=== PATIENT | male | born 1990 | race Two or more races ===

== ENCOUNTER 2021-10-07 17:06 | Emergency (ER) | payer OTHER, SELFPAY ==
[2021-10-07 17:14] VITALS: BP 137/73; PULSE 76; RESP 97; TEMP 36.8; BMI 29.6
[2021-10-07 17:33] LABS: Imm Gran Abs Auto 0.06 X10*3/uL (0.00-0.03); MANUAL DIFF FLAG SCAN; Red Cell Distribution Width 12.4 % (11.0-16.0); SCAN SMEAR FLAG 1
[2021-10-07 17:35] LABS: Basophils Percent Auto 0.5 % (0-2); Eosinophils Absolute Auto 0.1 X10*3/uL (0.0-0.4); Eosinophils Percent Auto 2.1 % (0-4); Hematocrit 48.5 % (42.0-52.0); Hemoglobin 16.6 g/dl (14.0-18.0); Lymphocytes Absolute Auto 2.1 X10*3/uL (1.2-4.9); Lymphocytes Percent Auto 33.4 % (20-40); Mean Corpuscular HGB Conc 34.2 g/dl (31.0-36.0); Mean Corpuscular Hemoglobin 30.5 pg (27.0-33.0); Mean Corpuscular Volume 89.2 fL (80.0-98.0); Mean Platelet Volume 13.3 fL (9.4-12.4); Monocytes Absolute Auto 0.6 X10*3/uL (0.1-1.2); Monocytes Percent Auto 9.4 % (2-11); Neutrophils Absolute Auto 3.4 x10*3/uL (2.0-8.3); Neutrophils Percent Auto 53.6 % (45-73); Platelet Count 166 X10*3/uL (160-400); Red Blood Count 5.44 X10*6/uL (4.60-5.80); White Blood Count 6.3 X10*3/uL (4.8-10.8)
[2021-10-07 17:36] LABS: PLT ABN DIST 1
[2021-10-07 17:55] LABS: SLIDE REVIEW VERIFIED
[2021-10-07 17:59] LABS: COVID-19 Test Negative (Negative)
[2021-10-07 18:10] LABS: Anion Gap 13 (12-20); Blood Urea Nitrogen 16 mg/dL (9-16); Calcium 9.8 mg/dL (8.4-10.2); Carbon Dioxide 26 mmol/L (22-29); Chloride 104 mmol/L (96-108); Creatinine Clr Calc Pharmacy 103.9; Estimated Glomerular Filt Rate > 60; Glucose Random 115 mg/dL (60-115); Potassium 4.2 mmol/L (3.3-5.1); Sodium 139 mmol/L (135-145)
[2021-10-07 21:12] VITALS: BP 134/86; PULSE 58; RESP 18; TEMP 36.8; O2SAT 98
--- NOTE | 2021-10-07 21:15 | ED_ITS ---
HPI - General Adult General Chief complaint: General Medical Stated complaint: high blood pressure, headache, lighthead Time Seen by Provider: 10/07/21 21:15 Source: patient Mode of arrival: ambulatory History of Present Illness HPI narrative: 31-year-old male without significant past medical history, denies any use of alcohol or drugs and states he has a family history of hypertension and took his blood pressure this morning finding at significantly elevated 170s over 90s. Patient denies any chest pain/palpitations, blurry, but states he is having mild headache but also endorses that he has a stressful job Related Data Allergies Allergy/AdvReac Type Severity Reaction Status Date / Time No Known Allergies Allergy Verified 10/07/21 17:14 Review of Systems Review of Systems: Pertinent positives and negative as stated in the HPI and 10 point review of systems is otherwise negative. [facility] Past Medical History Source: nursing notes reviewed Social History Social History Advance Directives: No Advance Directives Information Provided: Yes Physical Exam Vital Signs: Vital Signs: Last Vital Signs Temp 98.2 F 10/07/21 21:12 Pulse 58 10/07/21 21:12 Resp 18 10/07/21 21:12 BP 134/86 10/07/21 21:12 Pulse Ox 98 10/07/21 21:12 BMI result Body Mass Index 29.6 VITAL SIGNS: Reviewed. GENERAL: Well developed, well nourished, in no acute distress. HEAD: Normocephalic/atraumatic EYES: PERRLA, EOMI OROPHARYNX: no oral lesions noted, posterior pharynx clear LUNGS: Normal breath sounds. No adventitious sounds or accessory muscle use. SpO2<98> CARDIOVASCULAR: Regular rate and rhythm without noted murmurs ABDOMEN: Soft, non-tender, non-distended with bowel sounds. SKIN: Inspection of the skin reveals no rashes NEUROLOGIC: Alert and oriented x 4. Strength and sensation to light touch were grossly intact x 4, otherwise nonfocal Course Course Course Narrative: 31-year-old male with history and clinical presentation consistent with elevated blood pressure and poor follow-up as he has no primary care provider. Review of all investigations otherwise negative for acute findings. Patient otherwise discharged home in stable condition with instructions to adjust diet and establish care with a primary care provider. Medical Decision Making Lab Data Result diagrams: 10/07/21 17:26 10/07/21 17:26 Labs: Lab Results 10/07/21 10/07/21 10/07/21 Range/Units 17:26 17:26 17:26 WBC 6.3 (4.8-10.8) X10*3/uL RBC 5.44 (4.60-5.80) X10*6/uL Hgb 16.6 (14.0-18.0) g/dl Hct 48.5 (42.0-52.0) % MCV 89.2 (80.0-98.0) fL MCH 30.5 (27.0-33.0) pg MCHC 34.2 (31.0-36.0) g/dl RDW 12.4 (11.0-16.0) % Plt Count 166 (160-400) X10*3/uL MPV 13.3 H (9.4-12.4) fL Immature Gran % (Auto) 1.0 H (0.0-0.4) % Neut % (Auto) 53.6 (45-73) % Lymph % (Auto) 33.4 (20-40) % Stephenson % (Auto) 9.4 (2-11) % Eos % (Auto) 2.1 (0-4) % Baso % (Auto) 0.5 (0-2) % Lymph # (Auto) 2.1 (1.2-4.9) X10*3/uL Stephenson # (Auto) 0.6 (0.1-1.2) X10*3/uL Eos # (Auto) 0.1 (0.0-0.4) X10*3/uL Baso # (Auto) 0.0 (0.0-0.2) X10*3/uL Abs Immat Gran (auto) 0.06 H (0.00-0.03) X10*3/uL Absolute Neuts (auto) 3.4 (2.0-8.3) x10*3/uL Absolute Nucleated RBC 0.000 (0.0-0.012) X10*3/uL Nucleated RBC % (auto) 0.0 (0.0-0.2) /100WBC Smear Tech's Comments VERIFIED Sodium 139 (135-145) mmol/L Potassium 4.2 (3.3-5.1) mmol/L Chloride 104 (96-108) mmol/L Carbon Dioxide 26 (22-29) mmol/L Anion Gap 13 (12-20) BUN 16 (9-16) mg/dL Creatinine 1.17 (0.5-1.4) mg/dL Estim Creat Clear Calc 103.9 Estimated GFR > 60 Random Glucose 115 (60-115) mg/dL Calcium 9.8 (8.4-10.2) mg/dL Urine Color Urine Appearance Urine pH (5.0-8.0) Ur Specific [place] (1.005-1.025) Urine Protein (NEG-TRACE) MG/DL Urine Glucose (UA) (NEG) MG/DL Urine Ketones (NEG) MG/DL Urine Blood (NEG) Urine Nitrite (NEG) Ur Leukocyte Esterase (NEG) COVID-19 (DELLA) Negative (Negative) COVID-19 Clin Com See Note 10/07/21 Range/Units 21:56 WBC (4.8-10.8) X10*3/uL RBC (4.60-5.80) X10*6/uL Hgb (14.0-18.0) g/dl Hct (42.0-52.0) % MCV (80.0-98.0) fL MCH (27.0-33.0) pg MCHC (31.0-36.0) g/dl RDW (11.0-16.0) % Plt Count (160-400) X10*3/uL MPV (9.4-12.4) fL Immature Gran % (Auto) (0.0-0.4) % Neut % (Auto) (45-73) % Lymph % (Auto) (20-40) % Stephenson % (Auto) (2-11) % Eos % (Auto) (0-4) % Baso % (Auto) (0-2) % Lymph # (Auto) (1.2-4.9) X10*3/uL Stephenson # (Auto) (0.1-1.2) X10*3/uL Eos # (Auto) (0.0-0.4) X10*3/uL Baso # (Auto) (0.0-0.2) X10*3/uL Abs Immat Gran (auto) (0.00-0.03) X10*3/uL Absolute Neuts (auto) (2.0-8.3) x10*3/uL Absolute Nucleated RBC (0.0-0.012) X10*3/uL Nucleated RBC % (auto) (0.0-0.2) /100WBC Smear Tech's Comments Sodium (135-145) mmol/L Potassium (3.3-5.1) mmol/L Chloride (96-108) mmol/L Carbon Dioxide (22-29) mmol/L Anion Gap (12-20) BUN (9-16) mg/dL Creatinine (0.5-1.4) mg/dL Estim Creat Clear Calc Estimated GFR Random Glucose (60-115) mg/dL Calcium (8.4-10.2) mg/dL Urine Color YELLOW Urine Appearance CLEAR Urine pH 6.0 (5.0-8.0) Ur Specific [place] >= 1.030 H (1.005-1.025) Urine Protein NEG (NEG-TRACE) MG/DL Urine Glucose (UA) NEG (NEG) MG/DL Urine Ketones NEG (NEG) MG/DL Urine Blood NEG (NEG) Urine Nitrite NEG (NEG) Ur Leukocyte Esterase NEG (NEG) COVID-19 (DELLA) (Negative) COVID-19 Clin Com Discharge Plan Discharge Clinical Impression: Elevated blood pressure reading Patient Disposition: Home, Self-Care Instructions: DASH Eating Plan (ED), Low-Sodium Diet (ED), Hypertension (ED) Additional Instructions: 1. Start by follow-up low-sodium diet. Avoid NSAIDs (ibuprofen, Motrin, aspirin, Excedrin, Aleve, Naprosyn) as these can elevate your blood. 2. Work on getting health insurance and establishing care with a primary care doctor. Return to the emergency room for any worsening of symptoms
[2021-10-07 22:03] LABS: Appearance Urine CLEAR; Color Urine YELLOW; Glucose Urine UA NEG (NEG); Leukocyte Esterase Urine NEG (NEG); Nitrite Urine NEG (NEG); Specific Gravity - Urine >= 1.030 (1.005-1.025); Urine Blood NEG (NEG); Urine Ketones NEG (NEG); Urine Protein NEG (NEG-TRACE)
[2021-10-07] MEDS: Acetaminophen 325 MG TABLET 975 MG PO (22:23)
== END 2021-10-07 22:27 | disposition home or self-care (01) ==
LOC: HO.ED 22:02
PROVIDERS: Emergency Provider Student in an Organized Health Care Education/Training Program
DX: R03.0 Elevated blood-pressure reading, without diagnosis of hypertension (principal); R51.9 Headache, unspecified; R42 Dizziness and giddiness; Z20.822 Contact with and (suspected) exposure to COVID-19; Z79.899 Other long term (current) drug therapy
CPT/HCPCS: 80048; 81003; 85025; 87635; 99283; 99284

== ENCOUNTER 2022-03-20 12:06 | Emergency (ER) | payer MEDICAID, SELFPAY ==
--- NOTE | ~2022-03-20 | US_ITS ---
EXAMINATION: US VENOUS ULTRASOUND WITH DOPPLER LOWER EXTREMITY, LEFT CLINICAL INFORMATION: Calf pain, trauma, rule out DVT COMPARISON: None TECHNIQUE: Ultrasound of the deep veins is performed from the hip to the calf with compression sonography and color and pulse Doppler assessment. Spectral analysis with color-flow imaging is performed. FINDINGS: There is normal venous compression and respiratory variation and augmented flow. The visualized common femoral vein, superficial femoral vein, profunda femoral vein, popliteal vein, and the trifurcation region shows no evidence of deep venous thrombosis. There is no significant popliteal fossa cyst. If the patient's symptoms persist, followup ultrasound in 5 days 7 days might be of value to exclude proximal propagation from a non-visualized calf vein. US/US venous duplex LE IMPRESSION: No DVT demonstrated in the left lower extremity.
--- NOTE | ~2022-03-20 | CT_ITS ---
EXAMINATION: CT OF THE HEAD AND CERVICAL SPINE WITHOUT CONTRAST CLINICAL INFORMATION: Head trauma, headache. Pain COMPARISON: None TECHNIQUE: Contiguous axial imaging was performed from the vertex to the thoracic inlet, through the head and cervical spine, without intravenous administration of contrast. Coronal and sagittal reformatted images through the cervical spine were obtained on the technologists workstation. Total exam dose-length product: 625+755 mGy-cm This CT examination was performed using dose optimization techniques as appropriate, variously including the following: *Automated exposure control *Adjustment of mA and/or kV according to patient size (this includes techniques or standardized protocols for targeted exams where dose is matched to indication/reason for exam; i.e. extremities or head) *Use of iterative reconstruction technique FINDINGS: Head: No acute intracranial hemorrhage. No extra-axial fluid collection. Tillman-white matter differentiation is preserved without evidence of acute large vessel territory ischemia. Symmetric, concordant ventricles and sulci; no hydrocephalus. No mass effect or midline shift. There is no abnormal attenuation within the brain parenchyma. The osseous structures and soft tissues are normal. No acute sinusitis. Cervical spine: Normal pre-vertebral soft tissues. No fracture seen. Straightening and reversal of the normal cervical lordosis. Disc heights are maintained but there is anterior osteophytosis and disc calcification across C4-C5, C5-C6 and minimally at C6-C7. No fracture seen. Posterior elements are intact. Thyroid homogeneous with no nodules seen. Densely calcified granuloma at the left upper lobe; no imaging follow-up recommended. No cervical lymphadenopathy, mass, or fluid collection. CT/CT cervical spine wo con IMPRESSION: No acute intracranial pathology. No acute osseous abnormality of the cervical spine.
--- NOTE | ~2022-03-20 | XR_ITS ---
EXAMINATION: XR ANKLE, LEFT CLINICAL INFORMATION: Pain with deformity and swelling COMPARISON: None TECHNIQUE: AP, lateral, and mortise views of the left ankle. FINDINGS: There is a large amount soft tissue swelling seen about the ankle. The ankle mortise does appear to be intact with no widening of the medial joint space. There is a small calcaneal spurs at insertion of the Achilles tendon. XR/XR ankle LT min 3V IMPRESSION: Large amount of soft tissue swelling without acute fracture or dislocation of the left ankle identified.
[2022-03-20 12:33] VITALS: BP 165/85; PULSE 105; RESP 18; TEMP 37.2; O2SAT 97; BMI 20.9
--- NOTE | 2022-03-20 12:43 | ED_ITS ---
HPI - Extremity Injury (Lower) General Chief Complaint: Extremity Injury, Lower Stated Complaint: twisted L ankle Time Seen by Provider: 03/20/22 12:42 Source: patient Mode of arrival: other (crutches) Limitations: no limitations History of Present Illness HPI Narrative: 32-year-old male presents for left ankle pain after mechanical trip and fall where he fell down 6 stairs and hit his head. Patient has also had a headache and blurry vision, no neck pain. Related Data Previous Rx's Medication Instructions Recorded naproxen 500 mg tablet 500 mg PO BID 10 days #20 tabs 03/20/22 Allergies Allergy/AdvReac Type Severity Reaction Status Date / Time No Known Allergies Allergy Verified 10/07/21 17:14 Review of Systems Constitutional: Constitutional: Denies body ache(s), Denies chills, Denies fatigue, Denies fever(s), Reports headache(s), Denies malaise and Denies weakness Eyes: Eyes: Denies diplopia ENT: Reports Normal hearing present, Denies vertigo, Denies dizziness, Denies otalgia, Reports headache(s), Denies mouth pain, Denies neck pain, Denies post nasal drip, Denies sinus pain, Denies sinus pressure, Denies sore throat and Denies throat swelling Cardiovascular: Cardiovascular: Denies chest pain, Denies syncope, Denies leg edema, Denies lightheadedness, Denies Loss of Consciousness, Denies palpitations and Denies dyspnea Respiratory: Respiratory: Denies chest congestion, Denies cough and Denies dyspnea Gastrointestinal: Gastrointestinal: Denies abdominal pain, Denies hematochezia, Denies constipation, Denies diarrhea and Denies vomiting Musculoskeletal: Musculoskeletal: Reports arthralgias, Reports joint swelling, Denies neck pain and Reports radiating pain into limb Neurologic: Reports Normal hearing present, Denies Abnormal speech present, Denies confusion, Denies vertigo, Denies dizziness, Denies syncope, Reports headache(s), Denies Sensory deficit (Neuro) and Denies weakness Psychiatric: Psychiatric: Denies anxiety, Denies confusion and Denies depression Endocrine: Endocrine: Denies fatigue and Denies palpitations Allergic/Immunologic: Allergic/Immunologic: Denies throat swelling PMFSH Social History Social History Advance Directives: No Advance Directives Information Provided: Yes Physical Exam Vital Signs: Vital Signs: Last Vital Signs Temp 98.9 F 03/20/22 12:33 Pulse 105 H 03/20/22 12:33 Resp 18 03/20/22 12:33 BP 165/85 H 03/20/22 12:33 Pulse Ox 97 03/20/22 12:33 O2 Del Method 03/20/22 12:33 BMI result Body Mass Index 20.9 Const: General: No confusion Nutritional Appearance: well nourished Orientation/consciousness: patient oriented x3 and No confusion Limitations: no limitations HEENT: Head: Yes normal to inspection, Yes normocephalic and Yes atraumatic Ears: hearing grossly normal bilaterally, external ears normal, TM's normal bilaterally and EAC's normal General nose exam: Normal external nose present Face and sinus: Yes normal facial exam and Yes sinuses nontender Mouth: Normal oral and palatal mucosa present Throat: Yes posterior oropharynx normal Eyes: Conjunctivae: conjunctivae normal Pupils: Equal, round and reactive pupils present EOM: EOMs intact bilaterally and No Nystagmus present Neck: Neck: Yes full ROM, Yes no lymphadenopathy and Yes supple Resp: Effort & Inspection: normal respiratory effort and able to speak in complete sentences Auscultation: clear to auscultation bilaterally, no crackles, no rales, no rhonchi and no wheezes Cardio: Rate: regular rate Rhythm: regular rhythm Heart sounds: S1 normal heart sound present and S2 normal heart sound present GI: Inspection: Yes normal to inspection Palpation (GI): Soft to palpation, nontender, no guarding and not rigid Percussion: Yes normal to percussion Auscultation: normal bowel sounds : General: Yes no CVA tenderness Back/Spine/Pelvis: Back: no CVA tenderness Cervical Spine: normal cervical lordosis, cervical ROM normal, No Cervical spine tenderness, No step off deformity and No cervical ROM abnormal Thoracic/Lumbar Spine: No thoracic spinal tenderness and No lumbar spinal tenderness Skin: Other: Swollen mildly erythematous left calf Neuro: General: patient oriented x3, gait normal, no focal motor deficits and No confusion Cranial nerves: Yes CN's II-XII intact bilaterally, Yes Facial sensation intact/muscles of mastication intact, Yes Equal, round and reactive pupils present, Yes Normal accommodation reflex present, Yes Bilaterally intact EOM present, Yes Nystagmus not present, Yes Normal facial strength present, Yes Midline tongue present, Yes Normal hearing present, Yes Ability to bilaterally rotate head present, Yes Ability to bilaterally elevate shoulders present and No Nystagmus present Cognition (Neuro): normal cognition Speech: No Abnormal speech present Gait exam (Neuro): Normal gait present Motor exam (neuro): 5/5 motor strength present throughout and Pronator motor function not present Sensory Exam: No Sensory deficit (Neuro) Deep tendon reflexes (DTR's): Right brachioradialis reflex intensity grade: 1+, Left brachioradialis reflex intensity grade: 1+, Right patellar reflex intensity grade: 1+ and Left patellar reflex intensity grade: 1+ Coordination: [id number] test normal and [id number]-[id number] test normal Pupils: Normal pupillary reactivity/response: bilateral Extrem: Left lower extremity: normal capillary refill, edema Details: non- pitting and 2+ and ankle Details: tenderness, swelling and normal ROM; no warmth, no ecchymosis and no crepitus Psych: Appearance: grossly normal Affect: normal affect Attitude: cooperative Thought process: Normal thought process present Course Course Course Narrative: 32-year-old male presents for left ankle pain headache has after falling down 6 stairs. On exam, patient is neurologically intact, stable vitals, patient has left ankle swelling bilaterally, tender over lateral and medial malleolus, tender to palpate posterior calf. X-ra of ankle shows no dislocation or fracture, ultrasound of left lower extremity shows no DVT, head CT and cervical spine CT showed no fracture or acute intracranial pathology. Patient has intact left lower extremity pulses, sensation, motor strength, DTRs. However, this is a severe ankle sprain. Patient was splinted in a posterior splint and stirrup fiberglass splint, advised to use crutches, nonweightbearing, rest, ice, compression, elevation, naproxen, follow-up with Orthopedics. All patient's questions were answered, return precautions given Reevaluation(s) Reevaluation #1: FINDINGS: There is a large amount soft tissue swelling seen about the ankle. The ankle mortise does appear to be intact with no widening of the medial joint space. There is a small calcaneal spurs at insertion of the Achilles tendon.? XR/XR ankle LT min 3V IMPRESSION: Large amount of soft tissue swelling without acute fracture or dislocation of the left ankle identified. CT/CT cervical spine wo con IMPRESSION: No acute intracranial pathology. No acute osseous abnormality of the cervical spine. ? FINDINGS: There is normal venous compression and respiratory variation and augmented flow. The visualized common femoral vein, superficial femoral vein, profunda femoral vein, popliteal vein, and the trifurcation region shows no evidence of deep venous thrombosis. ? There is no significant popliteal fossa cyst. If the patient's symptoms persist, followup ultrasound in 5 days 7 days might be of value to exclude proximal propagation from a non-visualized calf vein. US/US venous duplex LE LT IMPRESSION: No DVT demonstrated in the left lower extremity. Discharge Plan Discharge Clinical Impression: Ankle sprain and strain Patient Disposition: Home, Self-Care Instructions: Ankle Sprain (ED), Crutch Instructions (ED), Splint Care (ED), R.I.C.E. Treatment (ED) Additional Instructions: I have referred you to orthopedics. They should be calling you Wednesday morning, but if you do not hear from them please call them at the following number [phone] Please rest your left foot, use the crutches and do not bear weight, elevate your foot when you are home. Leave the splint on until you are seen by orthopedics. Please take the naproxen I prescribed to her pharmacy. Prescriptions: New naproxen 500 mg tablet 500 mg PO BID 10 Days Qty: 20 0RF Referrals: Alisha Wisdom MD [Physician] - Stand Alone Forms: Work/School Release Interventions: ED Discharge Assessment Last Done: 03/20/22 16:50 Discharge Date/Time: 03/20/22 16:58
[2022-03-20] MEDS: Acetaminophen 325 MG TABLET 975 MG PO (13:16)
[2022-03-20] MEDS: Ibuprofen 800 MG TABLET PO (13:17)
== END 2022-03-20 16:58 | disposition home or self-care (01) ==
PROVIDERS: Emergency Provider Emergency Medicine Emergency Medical Services
DX: S93.402A Sprain of unspecified ligament of left ankle, initial encounter (principal); S96.912A Strain of unspecified muscle and tendon at ankle and foot level, left foot, initial encounter; W10.8XXA Fall (on) (from) other stairs and steps, initial encounter; R60.0 Localized edema; M79.662 Pain in left lower leg; M25.572 Pain in left ankle and joints of left foot; R51.9 Headache, unspecified; Y93.9 Activity, unspecified; Y92.9 Unspecified place or not applicable; Y99.9 Unspecified external cause status
CPT/HCPCS: 29515; 70450; 72125; 73610; 93971; 99283; 99284

== ENCOUNTER 2022-03-29 14:37 | Emergency (ER) | payer MEDICAID, SELFPAY ==
--- NOTE | ~2022-03-29 | US_ITS ---
EXAMINATION: US VENOUS ULTRASOUND WITH DOPPLER LOWER EXTREMITY, LEFT CLINICAL INFORMATION: Left foot/leg swelling. COMPARISON: Left lower extremity DVT study done on 03/20/2022. TECHNIQUE: Ultrasound of the deep veins is performed from the hip to the calf with compression sonography and color and pulse Doppler assessment. Spectral analysis with color-flow imaging is performed. FINDINGS: There is normal venous compression and respiratory variation and augmented flow. The visualized common femoral vein, superficial femoral vein, profunda femoral vein, popliteal vein, and the trifurcation region shows no evidence of deep venous thrombosis. There is no significant popliteal fossa cyst. If the patient's symptoms persist, followup ultrasound in 5 days 7 days might be of value to exclude proximal propagation from a non-visualized calf vein. US/US venous duplex LE LT IMPRESSION: No DVT demonstrated in the left lower extremity, unchanged since prior study dated 03/20/2022.
[2022-03-29 15:13] VITALS: BP 135/84; PULSE 76; RESP 18; TEMP 36.8; O2SAT 97; BMI 28.8
--- NOTE | 2022-03-29 16:15 | ED.EXTPRO ---
HPI - Extremity Problem General Chief complaint: Extremity Injury, Lower Stated complaint: L foot pain/discoloration Time Seen by Provider: 03/29/22 15:20 Source: patient Mode of arrival: ambulatory Limitations: no limitations History of Present Illness HPI Narrative: Patient had a left ankle sprain on 03/20 since then having swelling came here as noticed discoloration and more swelling late. Patient using walker and standing long hours. Had ultrasound done on 03/20 which was negative also x-ray was negative Related Data Previous Rx's Medication Instructions Recorded naproxen 500 mg tablet 500 mg PO BID 10 days #20 tabs 03/20/22 Allergies Allergy/AdvReac Type Severity Reaction Status Date / Time No Known Allergies Allergy Verified 03/29/22 15:13 Review of Systems Review of Systems: Yes all other systems are reviewed and are negative [facility] Social History Social History Advance Directives: No Advance Directives Information Provided: No Physical Exam Vital Signs: Vital Signs: Last Vital Signs Temp 98.2 F 03/29/22 15:13 Pulse 76 03/29/22 15:13 Resp 18 03/29/22 15:13 BP 135/84 03/29/22 15:13 Pulse Ox 97 03/29/22 15:13 O2 Del Method 03/29/22 15:13 BMI result Body Mass Index 28.8 Appearance: Alert. Oriented X3. No acute distress. Neck: Normal inspection. Neck supple. CVS: Normal heart rate and rhythm. Pulses normal. Respiratory: No respiratory distress. Equal air entry bilateral, Skin: Skin warm and dry. Extremities: Left ankle soft tissue swelling with bluish discoloration neurovascular intact Neuro: Oriented X 3. No motor deficit. MDM - Extremity (Nontraumatic) MDM Narrative Medical decision making narrative: Patient is status post left ankle contusion/sprain x-ray negative for fracture venous Doppler also negative for blood clot patient standing for hours there is a reason for his left ankle to be swollen patient advised to keep left foot elevated Discharge Plan Discharge Clinical Impression: Contusion of ankle, left Patient Disposition: Home, Self-Care Instructions: Ankle Sprain (ED) Additional Instructions: keep l foot elevated, use crutches motrin for pain Prescriptions: No Action naproxen 500 mg tablet 500 mg PO BID 10 Days Qty: 20 0RF Interventions: ED Discharge Assessment Last Done: 03/29/22 16:37 Discharge Date/Time: 03/29/22 16:38
== END 2022-03-29 16:38 | disposition home or self-care (01) ==
PROVIDERS: Emergency Provider Internal Medicine
DX: S90.02XA Contusion of left ankle, initial encounter (principal); R60.0 Localized edema; M79.672 Pain in left foot; X58.XXXA Exposure to other specified factors, initial encounter; Y93.9 Activity, unspecified; Y92.9 Unspecified place or not applicable; Y99.9 Unspecified external cause status
CPT/HCPCS: 93971; 99283

== ENCOUNTER → 2022-04-09 15:31 | Outpatient (BNVA) | payer MEDICAID, SELFPAY | PROVIDERS: Visit Provider Physician Assistant | DX: S93.402A Sprain of unspecified ligament of left ankle, initial encounter (principal) | CPT/HCPCS: 99202 ==

== ENCOUNTER → 2022-05-11 12:41 | Outpatient (BNVA) | payer OTHER, SELFPAY | PROVIDERS: Visit Provider Physician Assistant | DX: S93.402A Sprain of unspecified ligament of left ankle, initial encounter (principal) | CPT/HCPCS: 99212 ==

== ENCOUNTER → 2022-06-22 08:24 | Outpatient (BNVA) | payer OTHER, SELFPAY | PROVIDERS: Visit Provider Physician Assistant | DX: S93.402A Sprain of unspecified ligament of left ankle, initial encounter (principal); W10.9XXA Fall (on) (from) unspecified stairs and steps, initial encounter; Y93.01 Activity, walking, marching and hiking; Y92.9 Unspecified place or not applicable; Y99.8 Other external cause status | CPT/HCPCS: 99212 ==

== ENCOUNTER 2022-06-22 10:00 | Outpatient (RCR) | payer OTHER, SELFPAY ==
--- NOTE | 2022-07-28 08:12 | MHC.PT.DC ---
[facility] [place] Office [place] [facility] [place] [facility] [address] Dharmesh Neff [address] [phone] F: [phone] F: [phone] F: [phone] F: [phone] Physical Therapy Discharge Report Diagnosis: Sprain of unspecified ligaments of L ankle, initial encounter Date of Surgery: NA Date of Evaluation: 05/18/22 Date of Discharge: 07/28/22 Treatments to Date: 9 Cancellations to Date: 0 No Shows to Date: 2 Discharge Status: Achieved Goals Improved Function Independent with HEP Discharge Summary: Federico completed 9 PT visits and has made significant improvements. He has achieved all goals set for her. He is therefore being d/c from PT. Electronically signed by: Demi Mattson, PT DPT Please sign and return to therapist. Thank you for your referral.
== END 2022-07-28 08:12 | disposition home or self-care (01) ==
LOC: HO.PT 10:00
PROVIDERS: Visit Provider Physician Assistant
DX: S93.402A Sprain of unspecified ligament of left ankle, initial encounter (principal)
CPT/HCPCS: 97110; 97112; 97140; 97161; 97530

== ENCOUNTER 2022-10-15 16:53 | Emergency (ER) | payer OTHER, SELFPAY ==
[2022-10-15 17:00] VITALS: BP 146/82; PULSE 64; RESP 18; TEMP 36.8; O2SAT 97; BMI 31.0
--- NOTE | 2022-10-15 17:01 | ED.MALEGU ---
HPI - Male Genitourinary General Chief complaint: Urogenital-Male <YOKASTA Taylor Last Filed: 10/15/22 17:03> Stated complaint: blood in urine <YOKASTA Taylor Last Filed: 10/15/22 17:03> Time Seen by Provider: 10/15/22 17:22 <YOKASTA Taylor Last Filed: 10/15/22 17:03> Source: patient <OYKASTA Solitario Last Filed: 10/15/22 19:07> Mode of arrival: ambulatory <YOKASTA Solitario Last Filed: 10/15/22 19:07> History of Present Illness HPI Narrative: 32-year-old male with no significant past medical history presenting to the ED complaining of painless hematuria x5 days. Reports mild urinary frequency. Denies fever, chills, dysuria, flank pain, abdominal pain, testicular pain, excessive working out/myalgias <YOKASTA Solitario Last Filed: 10/15/22 19:07> Onset (ago): day(s) <YOKASTA Solitario Last Filed: 10/15/22 19:07> Related Data Home medications: Previous Rx's Medication Instructions Recorded naproxen 500 mg tablet 500 mg PO BID 10 days #20 tabs 03/20/22 <YOKASTA Taylor Last Filed: 10/15/22 17:03> Allergies/Adverse reactions: Allergies Allergy/AdvReac Type Severity Reaction Status Date / Time No Known Allergies Allergy Verified 10/15/22 16:58 <YOKASTA Taylor Last Filed: 10/15/22 17:03> Review of Systems Review of Systems: Constitutional: No Fever, No Chills ENT/Mouth: No Ear Pain, No Nasal Congestion, No Sinus Pain, No Hoarseness, No sore throat, No Rhinorrhea, No Swallowing Difficulty Cardiovascular: No Chest Pain, No SOB Respiratory: No Cough, No Sputum, No Wheezing Gastrointestinal: No Nausea, No Vomiting, No Diarrhea, No Constipation, No Abdominal pain Genitourinary: No Dysuria, + Urinary Frequency, + Hematuria, No Urinary Incontinence/retention, No Urgency, No Flank Pain Musculoskeletal: No joint pain, No Myalgias, No Joint Swelling Skin: No Skin Lesions, No rash Neuro: No Weakness, No Numbness, No Paresthesias <YOKASTA Solitario - Last Filed: 10/15/22 19:07> Yes all other systems are reviewed and are negative <YOKASTA Solitario - Last Filed: 10/15/22 19:07> Constitutional: Constitutional: Reports as per HPI <YOKASTA Solitario - Last Filed: 10/15/22 19:07> [facility] Past Medical History Attestation statement: The following information was validated with the patient. 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 <YOKASTA Taylor - Last Filed: 10/15/22 17:03> Physical Exam Vital Signs: Vital Signs: Last Vital Signs Temp 98.2 F 10/15/22 17:00 Pulse 64 10/15/22 17:00 Resp 18 10/15/22 17:00 BP 146/82 H 10/15/22 17:00 Pulse Ox 97 10/15/22 17:00 O2 Del Method 10/15/22 17:00 BMI result Body Mass Index 31.0 <YOKASTA Taylor - Last Filed: 10/15/22 17:03> Vital Signs: Last Vital Signs Temp 98.2 F 10/15/22 17:00 Pulse 64 10/15/22 17:00 Resp 18 10/15/22 17:00 BP 146/82 H 10/15/22 17:00 Pulse Ox 97 10/15/22 17:00 O2 Del Method 10/15/22 17:00 BMI result Body Mass Index 31.0 <YOKASTA Solitario - Last Filed: 10/15/22 19:07> Vital Signs: Last Vital Signs Temp 98.2 F 10/15/22 17:00 Pulse 64 10/15/22 17:00 Resp 18 10/15/22 17:00 BP 146/82 H 10/15/22 17:00 Pulse Ox 97 10/15/22 17:00 O2 Del Method 10/15/22 17:00 BMI result Body Mass Index 31.0 <Kenroy Guillen MD - Last Filed: 10/15/22 18:43> Const: General: cooperative, healthy appearing and no acute distress <YOKASTA Solitario - Last Filed: 10/15/22 19:07> Orientation/consciousness: patient oriented x3 <YOKASTA Solitario - Last Filed: 10/15/22 19:07> Limitations: no limitations <YOKASTA Solitario - Last Filed: 10/15/22 19:07> HEENT: Head: Yes normal to inspection and Yes atraumatic <YOKASTA Solitario - Last Filed: 10/15/22 19:07> Ears: hearing grossly normal bilaterally <YOKASTA Solitario - Last Filed: 10/15/22 19:07> General nose exam: Normal external nose present <YOKASTA Solitario - Last Filed: 10/15/22 19:07> Face and sinus: Yes normal facial exam <YOKASTA Solitario - Last Filed: 10/15/22 19:07> Eyes: General: appearance normal, both eyes and all related structures <YOKASTA Solitario - Last Filed: 10/15/22 19:07> EOM: EOMs intact bilaterally <YOKASTA Solitario - Last Filed: 10/15/22 19:07> Neck: Neck: Yes normal visual inspection and Yes no meningeal signs <YOKASTA Solitario - Last Filed: 10/15/22 19:07> Resp: Effort & Inspection: normal respiratory effort and no respiratory distress <YOKASTA Solitario - Last Filed: 10/15/22 19:07> Cardio: Rate: regular rate <YOKASTA Solitario - Last Filed: 10/15/22 19:07> Heart sounds: S1 normal heart sound present and S2 normal heart sound present <YOKASTA Solitario - Last Filed: 10/15/22 19:07> GI: Inspection: Yes normal to inspection <YOKASTA Solitario - Last Filed: 10/15/22 19:07> Palpation (GI): Soft to palpation, nontender, no guarding and not rigid <YOKASTA Solitario - Last Filed: 10/15/22 19:07> : General: Yes no CVA tenderness <YOKASTA Solitario - Last Filed: 10/15/22 19:07> Back/Spine/Pelvis: Back: no CVA tenderness <YOKASTA Solitario - Last Filed: 10/15/22 19:07> Skin: Rashes: no rashes <YOKASTA Solitario - Last Filed: 10/15/22 19:07> Wounds: no wounds <YOKASTA Solitario - Last Filed: 10/15/22 19:07> Neuro: General: patient oriented x3, tone normal and no meningeal signs <YOKASTA Solitario - Last Filed: 10/15/22 19:07> Gait exam (Neuro): Normal gait present <YOKASTA Solitario - Last Filed: 10/15/22 19:07> Extrem: General: Yes normal to inspection <YOKASTA Solitario - Last Filed: 10/15/22 19:07> Course Course Course Narrative: RME-17PM 32yoM with no significant past medical history who is presenting to the ER with complaints of painless hematuria that he noticed since Wednesday. He reports he has never had this in the past. He denies any fevers, abdominal pain, nausea/vomiting, flank pain, back pain, abnormal penile discharge, thoughts of STDs, testicular pain or swelling or any other symptoms complaints or concerns at this time. Plan: labs, UA, gonorrhea chlamydia swab ordered at this time. Patient to be evaluated in [facility]. <YOKASTA Taylor - Last Filed: 10/15/22 17:03> RME-17PM 32yoM with no significant past medical history who is presenting to the ER with complaints of painless hematuria that he noticed since Wednesday. He reports he has never had this in the past. He denies any fevers, abdominal pain, nausea/vomiting, flank pain, back pain, abnormal penile discharge, thoughts of STDs, testicular pain or swelling or any other symptoms complaints or concerns at this time. Plan: labs, UA, gonorrhea chlamydia swab ordered at this time. Patient to be evaluated in [facility]. -labs unremarkable. UA without RBCs or blood. > case discussed with Dr. Guillen, if CPK WNL no need for CT at this time > possible transient muscle breakdown -1900-- ED care transferred to YOKASTA Jordan pending CPK and dispo per results <YOKASTA Solitario - Last Filed: 10/15/22 19:07> Reevaluation(s) Reevaluation #1: I discussed with YOKASTA Batista <Kenroy Guillen MD - Last Filed: 10/15/22 18:43> Time: 18:43 <Kenroy Guillen MD - Last Filed: 10/15/22 18:43> Medical Decision Making Medical Decision Making MDM Narrative: 32-year-old male with no significant past medical history presenting to the ED complaining of painless hematuria x5 days. On exam vital signs stable, NAD, nontoxic appearing, abdomen soft/nontender, no CVA tenderness. Concern for UTI vs rhabdo vs ? Renal stone although less likely being painless vs mass. Lower suspicion for pyelo Plan: Labs, UA, +/-CT Please refer to course for remaining clinical decision making, interpretation of labs/imaging results, and discussions with consultants and/or family members. <YOKASTA Solitario - Last Filed: 10/15/22 19:07> Differential Diagnosis Differential Diagnoses: The differential diagnosis associated with the presentation includes <YOKASTA Solitario - Last Filed: 10/15/22 19:07> As above <YOKASTA Solitario - Last Filed: 10/15/22 19:07> Consult Healthcare Provider ED attending Dr. Guillen <YOKASTA Solitario - Last Filed: 10/15/22 19:07> Lab Data [facility] Lab Attestation statement: I reviewed the patient's lab results. <YOKASTA Solitario - Last Filed: 10/15/22 19:07> Result Diagrams: 10/15/22 17:16 10/15/22 17:16 <YOKASTA Taylor - Last Filed: 10/15/22 17:03> Labs: Lab Results 10/15/22 10/15/22 10/15/22 Range/Units 17:16 17:16 17:17 WBC 6.6 (4.8-10.8) X10*3/uL RBC 5.21 (4.60-5.80) X10*6/uL Hgb 15.9 (14.0-18.0) g/dl Hct 45.6 (42.0-52.0) % MCV 87.5 (80.0-98.0) fL MCH 30.5 (27.0-33.0) pg MCHC 34.9 (31.0-36.0) g/dl RDW 12.0 (11.0-16.0) % Plt Count 185 (160-400) X10*3/uL MPV 13.2 H (9.4-12.4) fL Immature Gran % (Auto) 0.6 H (0.0-0.4) % Neut % (Auto) 53.0 (45-73) % Lymph % (Auto) 35.6 (20-40) % [place] % (Auto) 7.9 (2-11) % Eos % (Auto) 2.4 (0-4) % Baso % (Auto) 0.5 (0-2) % Lymph # (Auto) 2.4 (1.2-4.9) X10*3/uL [place] # (Auto) 0.5 (0.1-1.2) X10*3/uL Eos # (Auto) 0.2 (0.0-0.4) X10*3/uL Baso # (Auto) 0.0 (0.0-0.2) X10*3/uL Abs Immat Gran (auto) 0.04 H (0.00-0.03) X10*3/uL Absolute Neuts (auto) 3.5 (2.0-8.3) x10*3/uL Absolute Nucleated RBC 0.000 (0.0-0.012) X10*3/uL Nucleated RBC % (auto) 0.0 (0.0-0.2) /100WBC Sodium 142 (135-145) mmol/L Potassium 4.1 (3.3-5.1) mmol/L Chloride 109 H (96-108) mmol/L Carbon Dioxide 22 (22-29) mmol/L Anion Gap 15 (12-20) BUN 19 H (9-16) mg/dL Creatinine 1.08 (0.5-1.4) mg/dL Estim Creat Clear Calc 113.9 Estimated GFR > 60 Random Glucose 114 (60-115) mg/dL Calcium 9.5 (8.4-10.2) mg/dL Magnesium 1.9 (1.6-2.6) mg/dL Total Bilirubin 0.5 (0.0-1.0) mg/dL AST 31 (5-37) U/L ALT 48 H (0-40) U/L Alkaline Phosphatase 77 (39-117) U/L Total Creatine Kinase 500 H (38-174) U/L Total Protein 7.7 (6.5-8.0) g/dL Albumin 4.4 (3.5-5.0) g/dL Lipase 20 (8-78) U/L Urine Color Yellow Urine Appearance Clear Urine pH 5.5 (5.0-9.0) Ur Specific [place] 1.025 (1.005-1.025) Urine Protein Negative (Neg-Trace) mg/dL Urine Glucose (UA) Negative (Negative) mg/dL Urine Ketones Negative (Negative) mg/dL Urine Blood Negative (Negative) Urine Nitrite Negative (Negative) Ur Leukocyte Esterase Negative (Negative) <YOKASTA Taylor - Last Filed: 10/15/22 17:03> Lab Results 10/15/22 10/15/22 10/15/22 Range/Units 17:16 17:16 17:17 WBC 6.6 (4.8-10.8) X10*3/uL RBC 5.21 (4.60-5.80) X10*6/uL Hgb 15.9 (14.0-18.0) g/dl Hct 45.6 (42.0-52.0) % MCV 87.5 (80.0-98.0) fL MCH 30.5 (27.0-33.0) pg MCHC 34.9 (31.0-36.0) g/dl RDW 12.0 (11.0-16.0) % Plt Count 185 (160-400) X10*3/uL MPV 13.2 H (9.4-12.4) fL Immature Gran % (Auto) 0.6 H (0.0-0.4) % Neut % (Auto) 53.0 (45-73) % Lymph % (Auto) 35.6 (20-40) % [place] % (Auto) 7.9 (2-11) % Eos % (Auto) 2.4 (0-4) % Baso % (Auto) 0.5 (0-2) % Lymph # (Auto) 2.4 (1.2-4.9) X10*3/uL [place] # (Auto) 0.5 (0.1-1.2) X10*3/uL Eos # (Auto) 0.2 (0.0-0.4) X10*3/uL Baso # (Auto) 0.0 (0.0-0.2) X10*3/uL Abs Immat Gran (auto) 0.04 H (0.00-0.03) X10*3/uL Absolute Neuts (auto) 3.5 (2.0-8.3) x10*3/uL Absolute Nucleated RBC 0.000 (0.0-0.012) X10*3/uL Nucleated RBC % (auto) 0.0 (0.0-0.2) /100WBC Sodium 142 (135-145) mmol/L Potassium 4.1 (3.3-5.1) mmol/L Chloride 109 H (96-108) mmol/L Carbon Dioxide 22 (22-29) mmol/L Anion Gap 15 (12-20) BUN 19 H (9-16) mg/dL Creatinine 1.08 (0.5-1.4) mg/dL Estim Creat Clear Calc 113.9 Estimated GFR > 60 Random Glucose 114 (60-115) mg/dL Calcium 9.5 (8.4-10.2) mg/dL Magnesium 1.9 (1.6-2.6) mg/dL Total Bilirubin 0.5 (0.0-1.0) mg/dL AST 31 (5-37) U/L ALT 48 H (0-40) U/L Alkaline Phosphatase 77 (39-117) U/L Total Creatine Kinase 500 H (38-174) U/L Total Protein 7.7 (6.5-8.0) g/dL Albumin 4.4 (3.5-5.0) g/dL Lipase 20 (8-78) U/L Urine Color Yellow Urine Appearance Clear Urine pH 5.5 (5.0-9.0) Ur Specific [place] 1.025 (1.005-1.025) Urine Protein Negative (Neg-Trace) mg/dL Urine Glucose (UA) Negative (Negative) mg/dL Urine Ketones Negative (Negative) mg/dL Urine Blood Negative (Negative) Urine Nitrite Negative (Negative) Ur Leukocyte Esterase Negative (Negative) <YOKASTA Solitario - Last Filed: 10/15/22 19:07> Lab Results 10/15/22 10/15/22 10/15/22 Range/Units 17:16 17:16 17:17 WBC 6.6 (4.8-10.8) X10*3/uL RBC 5.21 (4.60-5.80) X10*6/uL Hgb 15.9 (14.0-18.0) g/dl Hct 45.6 (42.0-52.0) % MCV 87.5 (80.0-98.0) fL MCH 30.5 (27.0-33.0) pg MCHC 34.9 (31.0-36.0) g/dl RDW 12.0 (11.0-16.0) % Plt Count 185 (160-400) X10*3/uL MPV 13.2 H (9.4-12.4) fL Immature Gran % (Auto) 0.6 H (0.0-0.4) % Neut % (Auto) 53.0 (45-73) % Lymph % (Auto) 35.6 (20-40) % [place] % (Auto) 7.9 (2-11) % Eos % (Auto) 2.4 (0-4) % Baso % (Auto) 0.5 (0-2) % Lymph # (Auto) 2.4 (1.2-4.9) X10*3/uL [place] # (Auto) 0.5 (0.1-1.2) X10*3/uL Eos # (Auto) 0.2 (0.0-0.4) X10*3/uL Baso # (Auto) 0.0 (0.0-0.2) X10*3/uL Abs Immat Gran (auto) 0.04 H (0.00-0.03) X10*3/uL Absolute Neuts (auto) 3.5 (2.0-8.3) x10*3/uL Absolute Nucleated RBC 0.000 (0.0-0.012) X10*3/uL Nucleated RBC % (auto) 0.0 (0.0-0.2) /100WBC Sodium 142 (135-145) mmol/L Potassium 4.1 (3.3-5.1) mmol/L Chloride 109 H (96-108) mmol/L Carbon Dioxide 22 (22-29) mmol/L Anion Gap 15 (12-20) BUN 19 H (9-16) mg/dL Creatinine 1.08 (0.5-1.4) mg/dL Estim Creat Clear Calc 113.9 Estimated GFR > 60 Random Glucose 114 (60-115) mg/dL Calcium 9.5 (8.4-10.2) mg/dL Magnesium 1.9 (1.6-2.6) mg/dL Total Bilirubin 0.5 (0.0-1.0) mg/dL AST 31 (5-37) U/L ALT 48 H (0-40) U/L Alkaline Phosphatase 77 (39-117) U/L Total Creatine Kinase 500 H (38-174) U/L Total Protein 7.7 (6.5-8.0) g/dL Albumin 4.4 (3.5-5.0) g/dL Lipase 20 (8-78) U/L Urine Color Yellow Urine Appearance Clear Urine pH 5.5 (5.0-9.0) Ur Specific [place] 1.025 (1.005-1.025) Urine Protein Negative (Neg-Trace) mg/dL Urine Glucose (UA) Negative (Negative) mg/dL Urine Ketones Negative (Negative) mg/dL Urine Blood Negative (Negative) Urine Nitrite Negative (Negative) Ur Leukocyte Esterase Negative (Negative) <Kenroy Guillen MD - Last Filed: 10/15/22 18:43> Radiology Impression Discussion of test interpretation with radiology: I have reviewed the radiologist's reading. <YOKASTA Solitario - Last Filed: 10/15/22 19:07> Discharge Plan Discharge Clinical Impression: Hematuria <YOKASTA Taylor - Last Filed: 10/15/22 17:03> Patient Disposition: Home, Self-Care <YOKASTA Taylor - Last Filed: 10/15/22 17:03> Instructions: Hematuria (ED) <YOKASTA Taylor - Last Filed: 10/15/22 17:03> Additional Instructions: Your blood work was reassuring. Your urine does not have blood in it He possibly had transient muscle breakdown which cause discoloration of her urine You were tested for STIs, these results will be back in 48-72 hours, you will be contacted with positive results only. Please have close follow-up with her doctor. If symptoms persist or worsen, you develop abdominal pain, back pain, or fever return to the ED Please increase hydration <YOKASTA Taylor - Last Filed: 10/15/22 17:03> Prescriptions: No Action naproxen 500 mg tablet 500 mg PO BID 10 Days Qty: 20 0RF <YOKASTA Taylor - Last Filed: 10/15/22 17:03> Referrals: ED Physician,Generic [Emergency Provider] - <YOKASTA Taylor - Last Filed: 10/15/22 17:03>
[2022-10-15 17:24] LABS: Basophils Percent Auto 0.5 % (0-2); Eosinophils Absolute Auto 0.2 X10*3/uL (0.0-0.4); Eosinophils Percent Auto 2.4 % (0-4); Mean Platelet Volume 13.2 fL (9.4-12.4); SCAN SMEAR FLAG 1
[2022-10-15 17:26] LABS: Hematocrit 45.6 % (42.0-52.0); Hemoglobin 15.9 g/dl (14.0-18.0); Imm Gran Abs Auto 0.04 X10*3/uL (0.00-0.03); Imm Gran Pct Auto 0.6 % (0.0-0.4); Lymphocytes Absolute Auto 2.4 X10*3/uL (1.2-4.9); Lymphocytes Percent Auto 35.6 % (20-40); Mean Corpuscular HGB Conc 34.9 g/dl (31.0-36.0); Mean Corpuscular Hemoglobin 30.5 pg (27.0-33.0); Mean Corpuscular Volume 87.5 fL (80.0-98.0); Monocytes Absolute Auto 0.5 X10*3/uL (0.1-1.2); Monocytes Percent Auto 7.9 % (2-11); Neutrophils Absolute Auto 3.5 x10*3/uL (2.0-8.3); Platelet Count 185 X10*3/uL (160-400); Red Blood Count 5.21 X10*6/uL (4.60-5.80); White Blood Count 6.6 X10*3/uL (4.8-10.8)
[2022-10-15 17:26] LABS: Appearance Urine Clear; Color Urine Yellow; Glucose Urine UA Negative (Negative); Leukocyte Esterase Urine Negative (Negative); Nitrite Urine Negative (Negative); PH 5.5 (5.0-9.0); Specific Gravity - Urine 1.025 (1.005-1.025); Urine Blood Negative (Negative); Urine Ketones Negative (Negative); Urine Protein Negative (Neg-Trace)
[2022-10-15 17:27] LABS: PLT ABN DIST 1
[2022-10-15 17:28] LABS: MANUAL DIFF FLAG NO
[2022-10-15 17:38] LABS: Alanine Aminotransferase 48 U/L (0-40); Albumin Level 4.4 g/dL (3.5-5.0); Alkaline Phosphatase 77 U/L (39-117); Anion Gap 15 (12-20); Aspartate Amino Transferase 31 U/L (5-37); Bilirubin Total 0.5 mg/dL (0.0-1.0); Blood Urea Nitrogen 19 mg/dL (9-16); Calcium 9.5 mg/dL (8.4-10.2); Carbon Dioxide 22 mmol/L (22-29); Chloride 109 mmol/L (96-108); Creatinine Clr Calc Pharmacy 113.9; Estimated Glomerular Filt Rate > 60; Glucose Random 114 mg/dL (60-115); Magnesium 1.9 mg/dL (1.6-2.6); Potassium 4.1 mmol/L (3.3-5.1); Sodium 142 mmol/L (135-145); Total Protein 7.7 g/dL (6.5-8.0)
[2022-10-15 19:00] LABS: Lipase 20 U/L (8-78)
[2022-10-15] MEDS: 0.9 % Sodium Chloride 1,000 ML 999 ML IV (19:17)
[2022-10-16 10:58] LABS: CT PCR NOT DETECTED (Not Detect.); NG PCR NOT DETECTED (Not Detect.)
== END 2022-10-15 20:07 | disposition home or self-care (01) ==
PROVIDERS: Physician Assistant; Physician Assistant Medical; Emergency Provider Emergency Medicine
DX: R31.9 Hematuria, unspecified (principal); R35.0 Frequency of micturition; Z79.899 Other long term (current) drug therapy
CPT/HCPCS: 0353U; 36415; 80053; 81003; 82550; 83690; 83735; 85025; 96360; 99283; 99284

== ENCOUNTER → 2025-05-09 15:51 | Outpatient (BNVA) | payer BC, SELFPAY | DX: F32.A Depression, unspecified (principal); F41.9 Anxiety disorder, unspecified; Z79.899 Other long term (current) drug therapy | CPT/HCPCS: 96127 ==

== ENCOUNTER 2025-05-09 15:56 | Outpatient (AMB) | payer BC, SELFPAY ==
[2025-05-09 16:02] VITALS: BP 136/76; PULSE 68; RESP 18; TEMP 36.3; O2SAT 98; BMI 30.3
--- NOTE | 2025-05-09 16:02 | MHC.PC.OV ---
Vital Signs 05/09/25 16:02 Height 5 ft 9 in Weight 205 lb 4 oz BMI 30.3 BP 136/76 Blood Pressure Location Lt brachial Position Sitting Respiration 18 Pulse 68 Pulse Source Pulse Oximeter Temp 97.3 F Temp Source Temporal Artery Scan Pulse Oximetry (%) 98 Oxygen Delivery Method Room Air Intake Visit Reasons: establish care Public Relations Intern Required: No Accompanied by: Self / Same As Patient Allergies No Known Allergies Allergy (Verified 05/09/25 16:28) Medication List - Last Reconciled 05/09/25 by KHUSHI Hampton bupropion HCl SR 100 mg PO DAILY clonidine HCl 0.1 mg PO BEDTIME quetiapine 25 mg PO DAILY Tobacco use date assessed: 05/09/25 Dental Screening Dental Screen Date: 05/09/25 Did you have a dental visit in the last 12 months?: Yes Did you have a dental problem in the last 6 months where you did not have access to dental care?: No Was dental information given to patient?: Patient has dentist HPI establish care HPI Details Patient is presenting to establish care Previous PCP: None Last visit:n/a Last PE:n/a Specialist:no OBGYN:n/a Past medical history: Depression and anxiety [facility], Medications: Bupropion 100 mg daily, and clonidine 0.1 mg at bedtime, Seroquel 25 mg daily Family HX:htn on both side of the family Problem: Patient reports that he does not have any concerns today Denies chest pain, shortness of breath, heart palpitation or dizziness Denies abdominal pain or change in bowel habits Denies any urinary symptoms PFSH Medical History Anxiety Depression Family History Father High blood pressure Mother High blood pressure Social History Household Members: Spouse Housing: Apartment Alcohol intake: current Patient Tobacco Use Status: Never used Tobacco e-Cigarette/Vaping Use: Never Used service: No Current occupational status: employed 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 2. Feeling down, depressed, or hopeless: not at all 3. Trouble falling or staying asleep, or sleeping too much: more than half the days 4. Feeling tired or having little energy: not at all 5. Poor appetite or overeating: more than half the days 6. Feeling bad about yourself - or that you are a failure or have let yourself or your family down: not at all 7. Trouble concentrating on things, such as reading the newspaper or watching television: not at all 8. Moving or speaking so slowly that other people could have noticed. Or the opposite - being so fidgety or restless that you have been moving around a lot more than usual: not at all 9. Thoughts that you would be better off or of hurting yourself in some way: not at all [address]9032 - PHQ-9 Billing: Yes Source: Developed by Drs. Timo Cabrera, Tiffany Orr, Amadeo Torres and colleagues, with an educational dariela from [employer] Thrive Questionnaire Date Thrive assessed: 05/09/25 I am a: Patient What is your living situation today?: I have a steady place to live Within the past 12 months, did the food you bought not last and you didn't have the money to get more?: Never true Within the past 12 months, did you worry whether your food would run out before you got money to buy more?: Never true Do you have trouble paying for medicines?: No Do you have trouble getting transportation to medical appointments?: No Do you have trouble paying your heating and electricity bill?: No Do you have trouble taking care of your child, family member or friend?: No Do you have trouble with day-to-day activities such as bathing, preparing meals, shopping, managing finances, etc.?: No Are you currently unemployed and looking for a job?: No Are you interested in more education?: No Please select the resources that you would like help with: None THRIVE Score: 0 AUDIT C Alcohol Use Questionnaire (AUDIT-C) 1. How often do you have a drink containing alcohol?: Monthly or less 2. How many drinks containing alcohol do you have on a typical day when you are drinking?: 1 or 2 3. How often do you have six or more drinks on one occasion?: Never Total Score: 1 PETEY-7 AMB Questionnaire PETEY-7 Date PETEY - 7 assessed: 05/09/25 Feeling nervous, anxious, or on edge: 2 = More than half the days Not being able to stop or control worryin = Not at all Worrying too much about different things: 0 = Not at all Trouble relaxin = More than half the days Being so restless that it is hard to sit still: 0 = Not at all Becoming easily annoyed or irritable: 0 = Not at all Feeling afraid as if something awful might happen: 0 = Not at all Total PETEY-7 score (0-4 normal; 5-9 mild; 10-14 moderate; 15-21 severe): 4 Source: Developed by Drs. Timo Cabrera, Tiffany Orr, Amadeo Torres and colleagues, with an educational dariela from [employer] PETEY-7 Assessment Billing PETEY-7 Assessment Tool: PETEY-7 Assessment 04921 Review of Systems Const Denies headache(s) Eyes Denies loss of vision ENT Denies vertigo, Denies dizziness, Denies headache(s) and Denies sore throat Card Denies chest pain, Denies leg edema and Denies lightheadedness Resp Denies cough, Denies hemoptysis and Denies wheezing GI Denies abdominal pain, Denies melena, Denies constipation, Denies diarrhea and Denies vomiting Denies dysuria, Denies urinary frequency and Denies urinary urgency Musc Denies arthralgias, Denies joint swelling, Denies numbness and Denies tingling Neuro Denies Abnormal speech present, Denies behavioral changes, Denies vertigo, Denies dizziness, Denies headache(s), Denies loss of vision, Denies memory loss, Denies numbness and Denies tingling Psych Reports anxiety, Denies behavioral changes, Reports depression, Denies memory loss and Denies panic attacks Judah/Lymph Denies easy bleeding and Denies easy bruising Aller/Immun Denies wheezing Physical exam (Primary Care) Vital Signs: Last Vital Signs Temp 97.3 F 05/09/25 16:02 Pulse 68 05/09/25 16:02 Resp 18 05/09/25 16:02 BP 136/76 05/09/25 16:02 Pulse Ox 98 05/09/25 16:02 Oxygen Delivery Method Room Air 05/09/25 16:02 BMI result Body Mass Index 30.3 Tobacco/Smoking Status: Tobacco use Status Tobacco use date assessed 05/09/25 05/09/25 16:04 Patient Tobacco Use Status Never used Tobacco 05/09/25 16:26 Tobacco use type 05/09/25 16:26 e-Cigarette/Vaping Use Never Used 05/09/25 16:26 Thrive Assessment: Date of Thrive Assessment Date Thrive assessed 05/09/25 05/09/25 16:04 Const General: healthy appearing, no acute distress, alert and awake Nutritional Appearance: well nourished Orientation/consciousness: oriented to person, oriented to place and oriented to time HENMT Ears: TM's normal bilaterally General nose exam: Normal nasal mucous membranes and turbinates present Eyes Conjunctivae: conjunctivae normal Sclerae: sclerae normal Pupils: Equal, round and reactive pupils present Neck Neck: Yes no lymphadenopathy and Yes no JVD Thyroid: Thyroid normal Carotids: no bruits Resp Effort & Inspection: normal respiratory effort and not tachypneic Auscultation: no crackles, no rales, no rhonchi and no wheezes Cardio Rate: regular rate Rhythm: regular rhythm Heart sounds: no murmurs and normal S1 and S2 GI Palpation (GI): Soft to palpation, nontender, no hepatomegaly and no splenomegaly Auscultation: normal bowel sounds Skin General skin exam: no rashes or lesions noted and dry skin Neuro General: oriented to person, oriented to place and oriented to time Cranial nerves: Yes Equal, round and reactive pupils present Speech: No Abnormal speech present Gait exam (Neuro): Normal gait present Motor exam (neuro): no tremor noted Extrem Right upper extremity: full ROM Left upper extremity: full ROM Right lower extremity: full ROM; no edema Left lower extremity: full ROM; no edema Psych Mental Status: mental status grossly normal Speech and movement: Normal speech and movement present Affect: normal affect Attitude: cooperative Thought process: Normal thought process present Coding Level of Care Code New Pt Level 3 (26093) Diagnoses Anxiety F41.9 Depression, unspecified depression type F32.A Depression Type: unspecified Additional Codes PETEY-7 Assessment Billing - PETEY-7 Assessment Tool: PETEY-7 Assessment 55385 ([id number]) PHQ-9 - 26598 - PHQ-9 Billing: Yes ([id number]) Time Spent (min) 35 Assessment & Plan Assessment & Plan (1) Anxiety: Code(s): F41.9 - Anxiety disorder, unspecified Category: Medical Plan: Encouraged CBT Continue clonidine 0.1 mg at bedtime Follow up with Psychiatry as scheduled (Dr. Fitzgerald, [facility]) (2) Depression: Code(s): F32.A - Depression, unspecified Category: Medical Qualifiers: Depression Type: unspecified Qualified Code(s): F32.A - Depression, unspecified Plan: Encouraged CBT Continue bupropion, Seroquel 25 mg daily Follow up with Psychiatry as scheduled Plan Follow up in 7 weeks for annual physical Orders: Orders Complete Blood Count Auto Diff 05/09/25 Z - Encounter for general adult medical examination without abnormal findings, Z11.3 - Encounter for screening for infections with a predominantly sexual mode of transmission Comprehensive [place]. Panel Fast 05/09/25 Z. - Encounter for general adult medical examination without abnormal findings, Z11.3 - Encounter for screening for infections with a predominantly sexual mode of transmission Lipid Panel 05/09/25 Z. - Encounter for general adult medical examination without abnormal findings, Z11.3 - Encounter for screening for infections with a predominantly sexual mode of transmission Vitamin D 25-OH Total 05/09/25 Z. - Encounter for general adult medical examination without abnormal findings, Z11.3 - Encounter for screening for infections with a predominantly sexual mode of transmission Syphilis Screen 05/09/25 Z. - Encounter for general adult medical examination without abnormal findings, Z11.3 - Encounter for screening for infections with a predominantly sexual mode of transmission CT NG by PCR Urine 05/09/25 Z. - Encounter for general adult medical examination without abnormal findings, Z11.3 - Encounter for screening for infections with a predominantly sexual mode of transmission UA CC w/rflx Micro + Cult 05/09/25 Z - Encounter for general adult medical examination without abnormal findings, Z11.3 - Encounter for screening for infections with a predominantly sexual mode of transmission TSH reflex Free T4 05/09/25 Z - Encounter for general adult medical examination without abnormal findings, Z11.3 - Encounter for screening for infections with a predominantly sexual mode of transmission HIV Ab/Ag 05/09/25 Z00.00 - Encounter for general adult medical examination without abnormal findings, Z11.3 - Encounter for screening for infections with a predominantly sexual mode of transmission
== END 2025-05-09 16:39 | disposition home or self-care (01) ==
LOC: HO.HMCH 15:56
DX: F41.9 Anxiety disorder, unspecified (principal); F32.A Depression, unspecified

== ENCOUNTER 2025-06-11 10:41 | Emergency (ER) | payer BC, SELFPAY ==
[2025-06-11 10:46] VITALS: BP 146/77; PULSE 85; RESP 16; TEMP 36.1; O2SAT 97; BMI 31.1
--- NOTE | 2025-06-11 10:46 | ED_ITS ---
HPI - General Adult General Chief complaint: Eye Problems Stated complaint: recent eye procedure, lt eye pain Time Seen by Provider: 06/11/25 11:51 Source: patient Mode of arrival: ambulatory Limitations: no limitations History of Present Illness ED Provider: DR. Melvin HPI narrative: 35-year-old male s/p left eye Lasix surgery on 06/08 at [facility] in [facility] by Dr. Gruber, patient presented today was left eye increased pain in periorbital discomfort that is started since after the surgery, no eye redness, no discharge, no fever, no photophobia, no change in t he vision as per patient, pain is more with eye movements. Related Data Home Medications ?Medication ?Instructions ?Recorded ?Confirmed bupropion HCl 100 mg tablet,12 hr 100 mg PO DAILY 04/3005/09/25 sustained-release clonidine HCl 0.1 mg tablet 0.1 mg PO BEDTIME 05/09/25 05/09/25 quetiapine 25 mg tablet 25 mg PO DAILY 05/09/2504/30 Allergies Allergy/AdvReac Type Severity Reaction Status Date / Time No Known Allergies Allergy Verified 06/11/25 10:48 Review of Systems Review of Systems: All other systems are reviewed and are negative Constitutional: Reports as per HPI and Reports no additional constitutional complaints Eyes: Reports as per HPI and Reports no additional eye complaints Reports system reviewed and no additional complaints, except as documented Cardiovascular: Reports as per HPI and Reports no additional cardiovascular complaints Respiratory: Reports as per HPI and Reports no additional respiratory complaints Gastrointestinal: Reports as per HPI and Reports no additional gastrointestinal complaints Genitourinary: Reports no additional female genitourinary complaints Musculoskeletal: Reports no additional musculoskeletal complaints Skin/Breast: Reports system reviewed and no additional complaints, except as docu Psychiatric: Reports no additional psychiatric complaints Endocrine: Reports no additional endocrine complaints Hematologic/Lymphatic: Reports no additional hematologic/lymphatic complaints Allergic/Immunologic: Reports no additional allergic/immunologic complaints Reports system reviewed and no additional complaints, except as documented and Reports Abnormal speech present [facility] Past Medical History Medical History Anxiety Depression Family History Family History Father High blood pressure Mother High blood pressure Social History Social History Household Members: Spouse Housing: Apartment Alcohol intake: current Patient Tobacco Use Status: Never used Tobacco e-Cigarette/Vaping Use: Never Used Advance Directives: No Advance Directives Information Provided: Yes Do you have a plan to hurt others: No Plan service: No Current occupational status: employed 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 Blood pressure elevated. Heart rate normal. Respiratory rate normal. Temperature normal. Oxygen saturation normal. Appearance: Alert. Oriented X3. No acute distress. Head: Normal external exam. Normocephalic. Atraumatic. No Nichols signs noted. No raccoon eyes noted Eyes: Patient reports worsening of left eye pain with eye movements. General: appearance normal, both eyes and all related structures Visual Tuttle: normal visual tuttle by confrontation Alignment and Position: alignment normal and position normal Periorbital: periorbital findings normal Eyelids: Yes eyelids normal Conjunctivae: conjunctivae normal, no injection, no discharge Sclerae: sclerae normal Corneas: corneas normal, no fluorescein uptake. Pupils: Equal, round and reactive pupils present and Pupil accommodation reflex normal EOM: EOM abnormal, No Nystagmus present Direct Ophthalmoscopy: normal light reflex, no photophobia, no papilledema and fundi normal bilaterally. ENT: TM's Normal. Pharynx normal. Uvula midline. Moist mucous membranes. No trismus noted. No drooling noted. No muffled voice noted. Neck: Normal inspection. Neck supple. FROM. No adenopathy. Thyroid Normal. No meningeal signs. No neck mass noted. CVS: Normal heart rate and rhythm. Heart sound normal. No murmurs noted. Pulses normal throughout. Respiratory: No respiratory distress. Painless inspiration. Breath sounds normal. No wheezes/rales/rhonchi noted. Chest nontender. No accessory muscle usage noted or decreased air movement noted. Abdomen: Soft and nontender. Bowel sounds normal in all 4 quadrants. No distention noted. No organomegaly noted. No visible injury noted. Back: No CVA tenderness. Full range of motion noted. Skin: Skin warm and dry. Normal skin color. Normal skin turgor. No rashes/lesions/lacerations noted. Extremities: No lower extremity edema. Extremities exhibit normal range of motion. Extremities nontender. Neuro: Oriented X 3. Cranial nerve exam: II-XII are grossly intact No motor deficit. No sensory deficit. Reflexes normal. Course Course Course Narrative: Rapid medical examination performed in triage by Charley Keita PA-C. Patient is a 35 year old assigned male at presenting to the emergency department with left eye pain. Patient states that he had lasix done yesterday and is now having left eye pain. Patient states that he had the procedure done in [place] by Dr. Childs. Detailed physical exam and review of systems are deferred to the railroad car cleaning supervisor. Patient placed back in the waiting room pending room availability. Reevaluation(s) Reevaluation #1: 35-year-old male s/p left eye Lasix surgery 3 days ago presented with postope rative pain, eye exam is reassuring, effort to contacts [facility] with [place] and was able to make an appointment for the patient at 02:30 to be seen by the surgeon there. Patient's pain improved after tetracaine use during the exam, patient also was given ibuprofen, significant other's of the patient will drive patient to his appointment today. Time: 12:39 Medications Administered Discontinued Medications Generic Name Dose Route Start Last Admin Trade Name Freq PRN Reason Stop Dose Admin Tetracaine HCl 3 drop 06/11/25 11:56 06/11/25 12:05 Tetracaine Hcl/Pf 0.5% Oph Katie 4 Ml Drops EYE-BOTH 06/11/25 11:57 3 drop ONCE ONE Administration Medical Decision Making Differential Diagnosis Differential Diagnoses: The differential diagnosis associated with the presentation includes (Postoperative ophthalmitis, conjunctivitis, corneal abrasion, glaucoma, retinal detachment.) Admission/Observation Consideration of admission/observation: Escalation of care including admission/observation considered Discharge Plan Discharge Clinical Impression: Acute left eye pain Patient Disposition: Home, Self-Care Instructions: Eye Pain (ED) Additional Instructions: Please make your appointment today at [facility] cataract [facility] laser center at 02:30 to be evaluated by the grain broker. Prescriptions: No Action quetiapine 25 mg tablet 25 mg PO DAILY clonidine HCl 0.1 mg tablet 0.1 mg PO BEDTIME bupropion HCl 100 mg tablet sustained-release 12 hr 100 mg PO DAILY Print Language: Estonian
[2025-06-11] MEDS: Tetracaine HCl/PF 0.5% Oph Sol 4 ML DROPS 3 DROP EYE-BOTH (12:05)
--- OUTSIDE RECORDS SUMMARY | 2025-06-11 12:20 | XMS_ITS | Clinical Summary ---
Author Organization [facility] Address [address] [facility] [address] [place] [address] Phone Care Team Providers Care Access Tech Name Role Phone Refugio Varela MD Primary Care Provider + [phone] Allergies No known active allergies Medications zolpidem CR (AMBIEN CR) 6.25 MG CR tablet Take 6.25 mg by mouth at night if needed for sleep Do not crush, chew, or split. Active buPROPion (ZYBAN) 150 MG 12 hr tablet Take 150 mg by mouth in the morning and 150 mg in the evening. Do not crush, chew, or split.. Active cloNIDine (CATAPRES) 0.1 MG tablet Take 0.1 mg by mouth in the morning and 0.1 mg in the evening. Active Active Problems Problem Noted Date Diagnosed Date Blood pressure alteration 05/24/2023 Family History Medical History Relation Comments Hypertension Maternal Grandmother Hypertension Mother Cancer Paternal Grandfather Diabetes Paternal Grandfather Hypertension Paternal Grandfather Relation Status Comments Maternal Grandmother Mother Paternal Grandfather Social History Tobacco Use Types Packs/Day Years Used Date Smoking Tobacco: Never Smokeless Tobacco: Never Alcohol Use Standard Drinks/Week Comments Never 0 (1 standard drink = 0.6 oz pur e alcohol) Sex and Gender Information Value Date Recorded Sex Assigned at Not on file Legal Sex Male 8:45 AM EDT Gender Identity Not on file Sexual Orientation Not on file Plan of Treatment Health Maintenance Due Date Last Done Comments Hepatitis B Vaccine (1 of 3 - 19+ 3-dose series) 2011 Influenza Vaccine (#1) 2025 Pneumococcal Vaccine: Peds ( 0 to 5 Years) and At-Risk Patients (6 to 49 Years) Aged Out No longer eligible b ased on patient's age to complete this topic [place] [address] [facility] Care Teams Access Tech Relationship Specialty Start Date End Date Refugio Varela MD [address] [place] [id number] PCP - General Internal Medicine 03/12/23
[2025-06-11 13:05] VITALS: BP 138/72; PULSE 81; RESP 16; TEMP 36.2; O2SAT 97
== END 2025-06-11 13:06 | disposition home or self-care (01) ==
PROVIDERS: Emergency Provider Emergency Medicine
DX: G89.18 Other acute postprocedural pain (principal); H57.12 Ocular pain, left eye
CPT/HCPCS: 99283; 99284

== ENCOUNTER 2025-06-27 10:35 | Outpatient (REF) | payer BC, SELFPAY ==
[2025-06-27 11:06] LABS: MANUAL DIFF FLAG NO
[2025-06-27 11:44] LABS: Hematocrit 48.2 % (42.0-52.0); Hemoglobin 16.6 g/dl (14.0-18.0); Imm Gran Abs Auto 0.06 X10*3/uL (0.00-0.03); Imm Gran Pct Auto 1.3 % (0.0-0.4); Lymphocytes Absolute Auto 1.8 X10*3/uL (1.2-4.9); Mean Corpuscular HGB Conc 34.4 g/dl (31.0-36.0); Mean Corpuscular Hemoglobin 30.6 pg (27.0-33.0); Mean Corpuscular Volume 88.9 fL (80.0-98.0); NRBC Abs Auto 0.000 X10*3/uL (0.0-0.012); NRBC Pct Auto 0.0 /100WBC (0.0-0.2); Platelet Count 183 X10*3/uL (160-400); Red Blood Count 5.42 X10*6/uL (4.60-5.80); White Blood Count 4.7 X10*3/uL (4.8-10.8)
[2025-06-27 12:23] LABS: Appearance Urine Clear; Glucose Urine UA Negative (Negative); PH 5.5 (5.0-9.0); Specific Gravity - Urine 1.020 (1.005-1.025)
[2025-06-27 12:38] LABS: Alanine Aminotransferase 44 U/L (0-40); Albumin Level 4.7 g/dL (3.5-5.0); Alkaline Phosphatase 63 U/L (39-117); Anion Gap 11 (12-20); Aspartate Amino Transferase 27 U/L (5-37); Blood Urea Nitrogen 15 mg/dL (9-16); Calcium 9.6 mg/dL (8.4-10.2); Carbon Dioxide 25 mmol/L (22-29); Chloride 107 mmol/L (96-108); Cholesterol 233 mg/dL (<200); Estimated Glomerular Filt Rate > 60; HDL Cholesterol 39 mg/dL (>40); Potassium 4.2 mmol/L (3.3-5.1); Sodium 139 mmol/L (135-145); Total Protein 7.9 g/dL (6.5-8.0); Triglycerides 275 mg/dL (<150)
[2025-06-27 13:54] LABS: CT PCR Urine NOT DETECTED (Not Detect.); NG PCR Urine NOT DETECTED (Not Detect.)
[2025-06-28 04:11] LABS: Syphilis Screen Nonreactive (Nonreactive)
[2025-06-28 04:26] LABS: HIV Num 1 0.08 S/CO (0.00-0.99)
== END 2025-06-27 10:36 | disposition home or self-care (01) ==
LOC: HO.LAB 10:35
DX: Z00.00 Encounter for general adult medical examination without abnormal findings (principal); Z20.2 Contact with and (suspected) exposure to infections with a predominantly sexual mode of transmission; Z13.29 Encounter for screening for other suspected endocrine disorder; Z13.6 Encounter for screening for cardiovascular disorders
CPT/HCPCS: 80053; 80061; 81003; 82306; 84443; 85025; 86780; 87389; 87491; 87591

== ENCOUNTER 2025-07-06 11:20 | Outpatient (AMB) | payer BC, SELFPAY ==
[2025-07-06 11:23] VITALS: BP 130/90; PULSE 58; RESP 18; TEMP 36.3; O2SAT 99; BMI 31.3
--- NOTE | 2025-07-06 11:23 | A.OFFPC_ITS ---
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 Accompanied by: Self / Same As Patient Allergies No Known Allergies Allergy (Verified 07/06/25 12:07) Medication List - Last Reconciled 07/06/25 by KHUSHI Hampton bupropion HCl SR 100 mg PO DAILY clonidine HCl 0.1 mg PO BEDTIME quetiapine 25 mg PO DAILY Tobacco use date assessed: 05/09/25 Dental Screening Dental Screen Date: 07/06/25 Did you have a dental visit in the last 12 months?: Yes Did you have a dental problem in the last 6 months where you did not have access to dental care?: No Was dental information given to patient?: Patient has dentist HPI Annual exam HPI Details Dentist: up to date Eye: up to date Snellen: Right: Left: Corrected vision:yes, glasses, lasik, STI screening:negative Colonoscopy:n/a Pap Smer:n/a PHQ-9:n/a Flu: no COVID: X1 Tdap: 2022 Diet:regular Exercise: Reports that 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 He reports feeling fine, though bradycardia was noted. Lab results revealed slightly elevated liver enzymes, which have been trending down. His cholesterol panel showed elevated triglycerides at 275 mg/dL (goal <150 mg/dL) and elevated LDL cholesterol (goal <100 mg/dL). His HDL cholesterol was 39 mg/dL, with a goal of being greater than 40 mg/dL. Additionally, his vitamin D level was low, which may contribute to feelings of fatigue. Past medical history is significant for a hole in his left eye, for which he underwent laser correction. He has a follow-up appointment for this in September or October. His immunizations are up-to-date with a Tdap vaccine in 2022, but he declines the annual flu shot. He has received one dose of the [employer] COVID-19 vaccine. 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 [facility] Medical History Anxiety Depression Family History Father High blood pressure Mother High blood pressure Social History Household Members: Spouse Housing: Apartment Alcohol intake: current Alcohol intake frequency: holidays/special occasions only Patient Tobacco Use Status: Never used Tobacco Tobacco use type: Cigarette e-Cigarette/Vaping Use: Never Used Second Hand Smoke Exposure: No service: No Current occupational status: employed 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 2. Feeling down, depressed, or hopeless: not at all 3. Trouble falling or staying asleep, or sleeping too much: more than half the days 4. Feeling tired or having little energy: not at all 5. Poor appetite or overeating: more than half the days 6. Feeling bad about yourself - or that you are a failure or have let yourself or your family down: not at all 7. Trouble concentrating on things, such as reading the newspaper or watching television: not at all 8. Moving or speaking so slowly that other people could have noticed. Or the opposite - being so fidgety or restless that you have been moving around a lot more than usual: not at all 9. Thoughts that you would be better off or of hurting yourself in some way: not at all Source: Developed by Drs. Timo Cabrera, Tiffany Orr, Amadeo Torres and colleagues, with an educational dariela from [email or web address]. Thrive Questionnaire Date Thrive assessed: 05/09/25 I am a: Patient What is your living situation today?: I have a steady place to live Within the past 12 months, did the food you bought not last and you didn't have the money to get more?: Never true Within the past 12 months, did you worry whether your food would run out before you got money to buy more?: Never true Do you have trouble paying for medicines?: No Do you have trouble getting transportation to medical appointments?: No Do you have trouble paying your heating and electricity bill?: No Do you have trouble taking care of your child, family member or friend?: No Do you have trouble with day-to-day activities such as bathing, preparing meals, shopping, managing finances, etc.?: No Are you currently unemployed and looking for a job?: No Are you interested in more education?: Yes Please select the resources that you would like help with: None Currently or been in a relationship where the following occur: No concerns reported THRIVE Score: 0 AUDIT C Alcohol Use Questionnaire (AUDIT-C) 1. How often do you have a drink containing alcohol?: Monthly or less 2. How many drinks containing alcohol do you have on a typical day when you are drinking?: 1 or 2 3. How often do you have six or more drinks on one occasion?: Never Total Score: 1 PETEY-7 AMB Questionnaire PETEY-7 Date PETEY - 7 assessed: 05/09/25 Feeling nervous, anxious, or on edge: 2 = More than half the days Not being able to stop or control worryin = Not at all Worrying too much about different things: 0 = Not at all Trouble relaxin = More than half the days Being so restless that it is hard to sit still: 0 = Not at all Becoming easily annoyed or irritable: 0 = Not at all Feeling afraid as if something awful might happen: 0 = Not at all Total PETEY-7 score (0-4 normal; 5-9 mild; 10-14 moderate; 15-21 severe): 4 Source: Developed by Drs. Timo Cabrera, Tiffany Orr, Amadeo Torres and colleagues, with an educational dariela from [email or web address]. Review of Systems Const Denies headache(s) Eyes Denies loss of vision ENT Denies vertigo, Denies dizziness, Denies headache(s) and Denies sore throat Card Denies chest pain, Denies leg edema and Denies lightheadedness Resp Denies cough, Denies hemoptysis and Denies wheezing GI Denies abdominal pain, Denies melena, Denies constipation, Denies diarrhea and Denies vomiting Denies dysuria, Denies urinary frequency and Denies urinary urgency Musc Denies arthralgias, Denies joint swelling, Denies numbness and Denies tingling Neuro Denies Abnormal speech present, Denies behavioral changes, Denies vertigo, Denies dizziness, Denies headache(s), Denies loss of vision, Denies memory loss, Denies numbness and Denies tingling Psych Reports anxiety, Denies behavioral changes, Reports depression, Denies memory loss and Denies panic attacks Judah/Lymph Denies easy bleeding and Denies easy bruising Aller/Immun Denies wheezing Physical exam (Primary Care) Vital Signs: Last Vital Signs Temp 97.3 F 07/06/25 11:23 Pulse 46 L 07/06/25 11:23 BP 130/90 H 07/06/25 11:23 Pulse Ox 99 07/06/25 11:23 Oxygen Delivery Method Room Air 07/06/25 11:23 BMI result Body Mass Index 31.3 Tobacco/Smoking Status: Tobacco use Status Tobacco use date assessed 05/09/25 07/06/25 11:28 Patient Tobacco Use Status Never used Tobacco 07/06/25 11:28 Tobacco use type Cigarette 07/06/25 11:28 e-Cigarette/Vaping Use Never Used 07/06/25 11:28 Thrive Assessment: Date of Thrive Assessment Date Thrive assessed 05/09/25 07/06/25 11:28 Currently or been in a relationship where the following occur: No concerns reported Const General: healthy appearing, no acute distress, alert and awake Nutritional Appearance: well nourished Orientation/consciousness: oriented to person, oriented to place and oriented to time [facility] Ears: TM's normal bilaterally General nose exam: Normal nasal mucous membranes and turbinates present Eyes Conjunctivae: conjunctivae normal Sclerae: sclerae normal Pupils: Equal, round and reactive pupils present Neck Neck: Yes no lymphadenopathy and Yes no JVD Thyroid: Thyroid normal Carotids: no bruits Resp Effort & Inspection: normal respiratory effort and not tachypneic Auscultation: no crackles, no rales, no rhonchi and no wheezes Cardio Rate: regular rate Rhythm: regular rhythm Heart sounds: no murmurs and normal S1 and S2 GI Palpation (GI): Soft to palpation, nontender, no hepatomegaly and no splenomegaly Auscultation: normal bowel sounds Skin General skin exam: no rashes or lesions noted and dry skin Neuro General: oriented to person, oriented to place and oriented to time Cranial nerves: Yes Equal, round and reactive pupils present Speech: No Abnormal speech present Gait exam (Neuro): Normal gait present Motor exam (neuro): no tremor noted Deep tendon reflexes (DTR's): Right triceps reflex intensity grade: 2+, Left triceps reflex intensity grade: 2+, Rt Biceps (C5, C6): 2+, Left biceps reflex intensity grade: 2+, Right brachioradialis reflex intensity grade: 2+, Left brachioradialis reflex intensity grade: 2+, Right patellar reflex intensity grade: 2+ and Left patellar reflex intensity grade: 2+ Extrem Right upper extremity: full ROM Left upper extremity: full ROM Right lower extremity: full ROM; no edema Left lower extremity: full ROM; no edema Psych Mental Status: mental status grossly normal Speech and movement: Normal speech and movement present Affect: normal affect Attitude: cooperative Thought process: Normal thought process present Results Reviewed Results Reviewed: Laboratory Tests 06/27/25 06/27/25 11:01 11:03 WBC 4.7 L RBC 5.42 Hgb 16.6 Hct 48.2 MCV 88.9 MCH 30.6 MCHC 34.4 RDW 12.1 Plt Count 183 MPV 12.9 H Immature Gran % (Auto) 1.3 H Neut % (Auto) 48.5 Lymph % (Auto) 38.6 Perkins % (Auto) 8.7 Eos % (Auto) 2.3 Baso % (Auto) 0.6 Lymph # (Auto) 1.8 Perkins # (Auto) 0.4 Sodium 139 Potassium 4.2 Chloride 107 Carbon Dioxide 25 Anion Gap 11 L BUN 15 Creatinine 0.89 Estim Creat Clear Calc Not Reportable Estimated GFR > 60 Fasting Glucose 91 Calcium 9.6 Total Bilirubin 0.6 AST 27 ALT 44 H Alkaline Phosphatase 63 Total Protein 7.9 Albumin 4.7 Triglycerides 275 H Cholesterol 233 H LDL Cholesterol, Calc 139 H HDL Cholesterol 39 L 25-OH Vitamin D Total 14.7 L TSH 0.98 Urine Color Yellow Urine Appearance Clear Urine pH 5.5 Ur Specific [place] 1.020 Urine Protein Negative Urine Glucose (UA) Negative Urine Ketones Negative Urine Blood Negative Urine Nitrite Negative Ur Leukocyte Esterase Negative Ur N gonorrhoeae DNA (PCR) NOT DETECTED Coding Level of Care Code Est Pt Prev Care [id number]([id number]) Diagnoses Annual physical exam Z00.00 Anxiety F41.9 Depression, unspecified depression type F32.A Depression Type: unspecified Mixed hyperlipidemia E78.2 Hyperlipidemia type: mixed hyperlipidemia Vitamin D deficiency E55.9 Elevated liver enzymes R74.8 Time Spent (min) 35 Assessment & Plan Assessment & Plan (1) Annual physical exam: Code(s): Z00.00 - Encounter for general adult medical examination without abnormal findings Category: Medical Plan: Preventative guidelines and recent labs reviewed with patient. (2) Anxiety: Code(s): F41.9 - Anxiety disorder, unspecified Category: Medical Plan: Encouraged CBT Continue clonidine 0.1 mg at bedtime Follow up with Psychiatry as scheduled (Dr. Fitzgerald, [facility]) (3) Depression: Code(s): F32.A - Depression, unspecified Category: Medical Qualifiers: Depression Type: unspecified Qualified Code(s): F32.A - Depression, unspecified Plan: Encouraged CBT Continue bupropion, Seroquel 25 mg daily Follow up with Psychiatry as scheduled (4) HLD (hyperlipidemia): Code(s): E78.5 - Hyperlipidemia, unspecified Category: Medical Qualifiers: Hyperlipidemia type: mixed hyperlipidemia Qualified Code(s): E78.2 - Mixed hyperlipidemia Plan: The patient's lab results show elevated triglycerides at 275 and an LDL level above the goal of 100, while HDL is borderline low at 39. These levels pose a long-term risk for plaque buildup, potentially leading to strokes and heart attacks. The plan is to manage this initially with dietary modifications, including reducing intake of high-fat foods, red meat, pork, fried foods, dairy, egg yolks, and shellfish. [place]-3 fish oil supplements were suggested as a beneficial addition. A follow-up with repeat lipid panel is scheduled in 3 months to assess the impact of these changes. (5) Vitamin D deficiency: Code(s): E55.9 - Vitamin D deficiency, unspecified Category: Medical Plan: The patient's vitamin D level is low, which is a common issue in the region and can cause fatigue. It was recommended that the patient start taking an sxam-aik-nqqthdh vitamin D3 supplement, specifically 2000 IU (50 mcg), to help boost energy levels. A prescription was also sent to the pharmacy in case it is covered by insurance. (6) Elevated liver enzymes: Code(s): R74.8 - Abnormal levels of other serum enzymes Category: Medical Plan: The patient has slightly elevated liver enzymes, though they are trending down from previous levels. This is thought to be related to liver inflammation or overwork, possibly due to a high-fat diet. It is expected that the dietary changes recommended for cholesterol management will also help to lower these enzyme levels. Liver function tests will be rechecked in 3 months along with the lipid panel. Plan Follow up in 7 weeks for annual physical Orders: Orders Comprehensive [place]. Panel Fast 3 Months E55.9 - Vitamin D deficiency, unspecified, E78.5 - Hyperlipidemia, unspecified, R74.8 - Abnormal levels of other serum enzymes TSH reflex Free T4 3 Months E55.9 - Vitamin D deficiency, unspecified, E78.5 - Hyperlipidemia, unspecified, R74.8 - Abnormal levels of other serum enzymes Vitamin D 25-OH Total 3 Months E55.9 - Vitamin D deficiency, unspecified, E78.5 - Hyperlipidemia, unspecified, R74.8 - Abnormal levels of other serum enzymes Complete Blood Count Auto Diff 3 Months E55.9 - Vitamin D deficiency, unspecified, E78.5 - Hyperlipidemia, unspecified, F32.A - Depression, unspecified, F41.9 - Anxiety disorder, unspecified, R74.8 - Abnormal levels of other serum enzymes Lipid Panel 3 Months E55.9 - Vitamin D deficiency, unspecified, E78.5 - Hyperlipidemia, unspecified, R74.8 - Abnormal levels of other serum enzymes Medications: New cholecalciferol (vitamin D3) 50 mcg PO DAILY 90 caps 3RF
== END 2025-07-06 12:26 | disposition home or self-care (01) ==
LOC: HO.HMCH 11:20
DX: Z00.00 Encounter for general adult medical examination without abnormal findings (principal); F41.9 Anxiety disorder, unspecified; F32.A Depression, unspecified; E78.2 Mixed hyperlipidemia; E55.9 Vitamin D deficiency, unspecified; R74.8 Abnormal levels of other serum enzymes